=== PATIENT | female | born 1970 | race Caucasian/White ===

== ENCOUNTER 2019-07-27 06:16 | Day surgery (SDC) | payer OTHER ==
[~2019-07-27 06:16] MED LIST: CELECOXIB 200 MG CAP PO NR; EPINEPHrine 1 MG/10 ML SYRINGE IV ONE; GABAPENTIN 300 MG CAP PO NR; LACTATED RINGERS 1,000 ML IV SCH; LIDOCAINE (1%) 10 MG/1 ML VIAL 20 ML MDV INFILTRATI ONE; MAGNESIUM OXIDE 400 MG TAB PO SCH; MIDAZOLAM 2 MG/2 ML INJ IV NR; SCOPOLAMINE TRANSDERMAL PATCH 72 HR TD NR; SODIUM CHLORIDE 0.9% IRR 1,000 ML BOTTLE IR ONE; ceFAZolin/Water 2 GM/20 ML 2 GM/20 ML SYRINGE IV NR
[2019-07-27] MEDS ORDERED: BACTERIOSTATIC SODIUM CHLORIDE 0.9% 30 ML VIAL INFILTRATI ONE (06:50)
[2019-07-27] MEDS ORDERED: dexAMETHasone 20 MG/5 ML VIAL ONE (07:00)
[2019-07-27] MEDS ORDERED: diphenhydrAMINE 50 MG/ML VIAL ONE (07:00)
[2019-07-27] MEDS ORDERED: LIDOCAINE MPF (2%) 20 MG/1 ML VIAL 5 ML ONE (07:21)
[2019-07-27] MEDS ORDERED: ROCURONIUM 50 MG/5 ML INJ IV ONE ×2 (07:21→09:52)
[2019-07-27] MEDS ORDERED: fentaNYL 100 MCG/2 ML INJ ONE (07:21)
[2019-07-27] MEDS ORDERED: propofoL 200 MG/20 ML VIAL IV ONE (07:22)
[2019-07-27] MEDS ORDERED: SODIUM CHLORIDE 0.9% 1000 ML 1,000 ML, EPINEPHrine/PF 1 mg/1 mL 1 MG, LIDOCAINE 1% 20 m... IJ SCH (07:30)
[2019-07-27] MEDS ORDERED: LIDOCAINE 1%/EPINEPHRINE 1:100,000 VIAL (20 ML) INFILTRATI ONE ×2 (07:35→08:33)
--- NOTE | 2019-07-27 07:37 | Anesthesia Consultation ---
Anesthesia Consult and Med Hx Date of service: 07/27/19 - Airway Anesthetic Teeth Evaluation: Good ROM Head & Neck: Adequate Mental/Hyoid Distance: Adequate Mallampati Class: Class II Intubation Access Assessment: Probably Good - Pulmonary Exam CTA: Yes - Cardiac Exam Cardiac Exam: RRR - Pre-Operative Health Status ASA Pre-Surgery Classification: ASA1 Proposed Anesthetic Plan: General - Pulmonary Hx Smoking: No Hx Respiratory Symptoms: No - Cardiovascular System Hx Hypertension: No Hx Heart Attack/AMI: No - Central Nervous System CVA: No - Gastrointestinal Hx Gastroesophageal Reflux Disease: No - Endocrine Hx Renal Disease: No Hx Liver Disease: No Hx Insulin Dependent Diabetes: No Hx Non-Insulin Dependent Diabetes: No Hx Thyroid Disease: No - Other Systems Hx Obesity: Yes (BMI 32)
[2019-07-27] MEDS ORDERED: HYDROmorphone 1 MG/1 ML INJ IV PRN (07:38)
--- NOTE | 2019-07-27 07:38 | Anesthesia Day of Surgery ---
Anesthesia Day of Surgery - Day of Surgery Patient Examined: Yes Patient H&P Reviewed: Yes Patient is NPO: Yes
[2019-07-27] MEDS ORDERED: SODIUM CHLORIDE 0.9% 1000 ML 1,000 ML ONE (08:43)
[2019-07-27] MEDS ORDERED: EPINEPHrine 30 MG/30 ML INJ IV ONE (08:44)
[2019-07-27] MEDS ORDERED: LIDOCAINE (1%) 10 MG/1 ML VIAL 20 ML MDV ONE (08:45)
[2019-07-27] MEDS ORDERED: SODIUM CHLORIDE 0.9% IRR 1,500 ML BOTTLE IR ONE (09:01)
[2019-07-27] MEDS ORDERED: HYDROmorphone 1 MG/1 ML INJ ONE (09:01)
[2019-07-27] MEDS ORDERED: KETAMINE/STERILE WATER 50 MG/ML SYRINGE ONE (09:02)
[2019-07-27] MEDS ORDERED: SODIUM CHLORIDE 0.9% IRR 1,000 ML BOTTLE IR ONE (10:47)
[2019-07-27] MEDS ORDERED: LIDOCAINE (1%) 10 MG/1 ML VIAL 20 ML MDV INFILTRATI ONE (10:47)
[2019-07-27] MEDS ORDERED: EPINEPHrine 1 MG/10 ML SYRINGE IV ONE (10:47)
[2019-07-27] MEDS ORDERED: ePHEDrine SULFATE 50 MG/1 ML INJ ONE (12:07)
[2019-07-27] MEDS ORDERED: ceFAZolin 1 GM VIAL ONE (12:12)
[2019-07-27] MEDS ORDERED: NEOSTIGMINE 10MG/10 ML INJ MDV ONE (13:18)
[2019-07-27] MEDS ORDERED: GLYCOPYRROLATE 0.4 MG/2 ML INJ ONE (13:18)
[2019-07-27] MEDS ORDERED: KETOROLAC 30 MG/1 ML INJ ONE (13:18)
[2019-07-27] MEDS ORDERED: ONDANSETRON 4 MG/2 ML INJ ONE (13:19)
[2019-07-27 14:46] VITALS: BP 120/74
--- NOTE | 2019-07-27 16:10 | Operative Report ---
Operative Report Operative Report: Plastic Surgery Operative Note Preoperative Diagnosis: Unacceptable cosmetic appearance Postoperative Diagnosis: Same Procedure: Lipsuction of the upper and lower abdomen, full waistline, bra rolls and axilla with fat grafting to the buttocks and hips. 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 Also after losing weight she noticed a lot of sagging and dimpling of her buttock skin that was not present before weight loss. She was interested in using her fat to improve buttock volume and shape. We discussed liposuction with fat grafting to the buttocks and hips in great detail, including the risks of the procedure. The patient understood and accepted these risks and desired to proceed with surgery. Informed consent was obtained. Procedure: The patient was marked in preoperative holding and brought into the operating room where she was placed supine on the OR table. After induction of adequate general endotracheal anesthesia the abdomen was prepped with chlorhexidine and draped in the usual sterile surgical fashion. To begin, 1% lidocaine with epinephrine was infiltrated into the marked port entry sites. Using a No. 11 blade, cannula entry points were opened, and tumescent solution was infiltrated through these same incisions. A total of 2L was infiltrated into the subcutaneous tissue of the abdomen and anterior waist. After allowing adequate time for epinephrine effect, power assisted liposuction was performed until the aspirate was bloody and a desirable contour was achieved. Fat was collected in a sterile cannister and allowed to separate from fluid aspirate by gravity. Incisions were closed with 4-0 Monocryl suture. The patient was then placed in the prone position and once again cannula entry sites were injected with local anesthesia and opened with an 11 blade. 2 L of tumescent solution was infiltrated into the subcutaneous tissue of the posterior waist and upper back, and power assisted liposuction used to remove excess fat. Once satisfied with the contour we began the fat grafting portion of the procedure. Using a blunt cannula, fat was injected into the subcutaneous tissue of the buttocks and hips bilaterally until a desireable contour was achieved. A total of 2000 cc of pure fat was injected on the right, and 2000cc was injected on the left. Once fat grafting was complete, 4-0 Monocryl was used to close all cannula entry points. All areas where incisions were placed were then dressed with abdominal pads and the post operative compression garment was placed. Patient was then awakened from general anesthesia and transferred to the PACU in stable condition. She tolerated the procedure well. All sponge needle and instrument counts were correct at the end of the case.
--- NOTE | 2019-07-27 16:48 | Post Anesthesia Evaluation ---
- Post Anesthesia Evaluation Patient Participated: Yes Airway Patent: Yes Stable Respiratory Function: Yes Nausea/Vomiting: No Temp > 96.8F: Yes Pain Manageable: Yes Adequeate Hydration: Yes Anesthesia Complications: No
== END 2019-07-27 15:26 | disposition home or self-care (01) ==
LOC: OR 06:16
PROVIDERS: ATTEND Plastic Surgery
DX: Z41.1 Encounter for cosmetic surgery (principal); E66.9 Obesity, unspecified; F32.9 Major depressive disorder, single episode, unspecified; Z79.899 Other long term (current) drug therapy; Z98.891 History of uterine scar from previous surgery; Z98.890 Other specified postprocedural states; Z68.32 Body mass index [BMI] 32.0-32.9, adult
CPT/HCPCS: 15771; 15772; 81025; J0171; J0690; J1100; J1170; J1200; J1885; J2250; J2405; J2704; J2710; J3010; J7030; J7120